=== PATIENT | female | born 1970 | race Native Hawaiian/Other Pacific Islander ===

== ENCOUNTER 2022-05-27 15:23 | Emergency (ER) | payer MEDICAID ==
[~2022-05-27] VITALS: Ht 154.9 cm; Wt 108.9 kg
[2022-05-27 15:44] VITALS: BP 139/84
--- NOTE | 2022-05-27 15:53 | NUR ---
PT W/C ASSISTED TO ER BED 7
--- NOTE | 2022-05-27 16:01 | NUR ---
ANNE ROJAS AT BEDSIDE FOR EVALUATION
[2022-05-27] MEDS ORDERED: KETOROLAC 30 MG/ML VIAL IM ONE (16:10)
--- NOTE | 2022-05-27 16:32 | NUR ---
51YO FEMALE PT BIB SON C/O INCREASED L POSTERIOR KNEE PAIN XTODAY. PT STATES INITIAL PAIN STARTED ON MONDAY AND WOULD HEAR "CRACKING" WHEN WALKING. KNEE PRESENTS W/O VISIBLE INJURY. PT HAS LIMITED ROM DUE TO PAIN AND UNABLE TO FULL BEND AT KNEE.NON AMBULATORY AT THIS TIME. MILD RELIEF AFTER TAKING IBUPROFEN. PT AAOX4, RESPIRATIONS EVEN AND UNLABORED. SON AT BEDSIDE HX: DIABETES , ANXIETY NKA
[2022-05-27] MEDS ORDERED: ACET-10509 PO (16:45)
[2022-05-27] MEDS ORDERED: DICL100G31 TP (16:45)
[2022-05-27 16:55] VITALS: BP 139/84
--- NOTE | 2022-05-27 16:55 | NUR ---
Patient discharged with v/s stable. Written and verbal after care instructions FOR ACUTE KNEE PAIN given and explained. Patient alert, oriented and verbalized understanding of instructions. Wheel Chair Assisted with to car. All questions addressed prior to discharge. ID band removed. Patient advised to follow up with PMD. Rx of TYLENOL XTRA STRENGTH AND DICLOFENAC SODIUM given. Opportunity to ask questions provided and answered.
--- NOTE | 2022-05-27 16:57 | NUR ---
The patient's care was reviewed and supervised by Maia Caicedo RN.
== END 2022-05-27 16:57 | disposition home or self-care (01) ==
LOC: MED 15:23
DX: M17.12 Unilateral primary osteoarthritis, left knee (principal); E11.9 Type 2 diabetes mellitus without complications; Z79.899 Other long term (current) drug therapy
CPT/HCPCS: 73562; 96372; 99283; J1885; Q0092

== ENCOUNTER 2023-08-02 23:12 | Emergency (ER) | payer MEDICAID ==
[~2023-08-02] VITALS: Ht 154.9 cm; Wt 116.1 kg
[~2023-08-02 23:12] MED LIST: ACET-10509 PO; DICL100G31 TP
[2023-08-02 23:34] VITALS: PULSE 93; RESP 20; TEMP 98.2; O2SAT 98
[2023-08-03 02:00] LABS: BASOPHILS # (AUTO) 0.1 K/uL (0.00-0.22); BASOPHILS % (AUTO) 0.7 % (0.0-2.0); EOSINOPHILS # (AUTO) 0.1 K/uL (0-0.4); EOSINOPHILS % (AUTO) 1.7 % (0.0-4.0); HEMATOCRIT 40.1 % (36-48); HEMOGLOBIN 13.6 g/dL (12.0-16.0); LYMPHOCYTES # (AUTO) 2.5 K/uL (2.5-16.5); LYMPHOCYTES % (AUTO) 28.9 % (20.5-51.1); MEAN CORPUSCULAR HEMOGLOBIN 29 pg (27-31); MEAN CORPUSCULAR HGB CONC 34 g/dL (33-37); MEAN CORPUSCULAR VOLUME 86.4 fL (80-94); MONOCYTES # (AUTO) 0.7 K/uL (0.8-1.0); MONOCYTES % (AUTO) 7.5 % (1.7-9.3); NEUTROPHILS # (AUTO) 5.3 K/uL (1.8-7.7); NEUTROPHILS % (AUTO) 61.2 % (42.2-75.2); PLATELET COUNT (AUTO) 213 K/uL (140-450); RED BLOOD CELL COUNT(AUTO) 4.64 MIL/uL (4.20-5.40); RED CELL DISTRIBUTION WIDTH 13.5 % (11.6-13.7); WHITE BLOOD COUNT (AUTO) 8.6 K/uL (4.8-10.8)
[2023-08-03 02:20] LABS: ANION GAP 10.1 (8-16); CARBON DIOXIDE 30.7 mmol/L (21-32); CREATININE 0.6 mg/dL (0.6-1.3); POTASSIUM 3.8 mmol/L (3.5-5.1)
[2023-08-03 05:39] VITALS: PULSE 85; RESP 18; TEMP 97; O2SAT 98
== END 2023-08-03 05:40 | disposition home or self-care (01) ==
LOC: MED 23:12
DX: R20.2 Paresthesia of skin (principal); E11.9 Type 2 diabetes mellitus without complications; I10 Essential (primary) hypertension; Z79.899 Other long term (current) drug therapy
CPT/HCPCS: 36415; 70450; 80048; 85025; 99284

== ENCOUNTER 2023-10-28 22:54 | Emergency (ER) | payer MEDICAID, OTHER ==
[~2023-10-28] VITALS: Ht 152.4 cm; Wt 111.1 kg
[2023-10-28 23:10] VITALS: BP 115/64; PULSE 74; RESP 18; TEMP 98.2; O2SAT 96
[2023-10-28] MEDS: LORazepam 2 MG/ML VIAL IM ONE (23:37)
[2023-10-28 23:50] LABS: BILIRUBIN,URINE NEGATIVE (NEGATIVE); BLOOD, URINE TRACE-I (NEGATIVE); COLOR,URINE YELLOW (YELLOW); LEUKOCYTE ESTERASE ,URINE NEGATIVE (NEGATIVE); NITRITE, URINE NEGATIVE (NEGATIVE); PROTEIN,URINE NEGATIVE (NEGATIVE); UGLUCOSE NEGATIVE (NEGATIVE); UROBILINOGEN,URINE 0.2 EU/dL (0.2 - 1)
[2023-10-28 23:54] LABS: APPEARANCE,URINE SLIGHTLY HAZY (CLEAR)
[2023-10-29 00:01] LABS: BACTERIA,URINE FEW /HPF (None Seen); RBC,URINE 0-5 /HPF (0-5); WBC,URINE 0-5 /HPF (0-5)
[2023-10-29 00:34] VITALS: BP 115/64; PULSE 74; RESP 18; TEMP 98.2; O2SAT 96
== END 2023-10-29 00:25 | disposition home or self-care (01) ==
LOC: MED 22:54
DX: F41.9 Anxiety disorder, unspecified (principal); E11.9 Type 2 diabetes mellitus without complications; I10 Essential (primary) hypertension; Z98.51 Tubal ligation status; Z79.899 Other long term (current) drug therapy
CPT/HCPCS: 81001; 96372; 99283; J2060